=== PATIENT | male | born 1985 | race Caucasian/White ===

== ENCOUNTER 2020-11-24 15:48 | Emergency (ER) | payer OTHER ==
[~2020-11-24 15:48] MED LIST: DIVA-112 PO
== END 2020-11-24 19:00 | disposition left against medical advice (07) ==
LOC: EMS 15:48
DX: Z53.21 Procedure and treatment not carried out due to patient leaving prior to being seen by health care provider (principal)

== ENCOUNTER 2021-01-11 13:18 | Emergency (ER) | payer OTHER ==
[~2021-01-11] VITALS: Ht 167.6 cm; Wt 70.5 kg
[2021-01-11 14:15] VITALS: BP 128/75
== END 2021-01-11 14:16 | disposition home or self-care (01) ==
LOC: EMS 13:18
DX: F20.9 Schizophrenia, unspecified (principal); Z76.0 Encounter for issue of repeat prescription
CPT/HCPCS: 99281; Z7502

== ENCOUNTER 2023-12-19 19:28 | Emergency (ER) | payer OTHER ==
[~2023-12-19] VITALS: Ht 170.2 cm; Wt 81.8 kg
[2023-12-19 19:33] VITALS: BP 123/77; PULSE 76; RESP 19; TEMP 98.8; O2SAT 96
== END 2023-12-19 20:59 | disposition home or self-care (01) ==
LOC: EMS 19:28
DX: T18.9XXA Foreign body of alimentary tract, part unspecified, initial encounter (principal); W44.9XXA Unspecified foreign body entering into or through a natural orifice, initial encounter; Y93.89 Activity, other specified; Y92.89 Other specified places as the place of occurrence of the external cause; Y99.8 Other external cause status
CPT/HCPCS: 99281; Z7502